=== PATIENT | female | born 1995 | race Caucasian/White ===

== ENCOUNTER 2020-10-07 08:25 | Emergency (ER) | payer OTHER ==
[~2020-10-07] VITALS: Ht 162.6 cm; Wt 70.5 kg
[2020-10-07 08:49] VITALS: BP 122/77
== END 2020-10-07 10:05 | disposition home or self-care (01) ==
LOC: EMS 08:25
DX: Z11.1 Encounter for screening for respiratory tuberculosis (principal); F17.210 Nicotine dependence, cigarettes, uncomplicated; Z02.89 Encounter for other administrative examinations
CPT/HCPCS: 99283; 99406; 71046; 71046-TC